=== PATIENT | female | born 1970 | race Caucasian/White ===

== ENCOUNTER 2021-10-15 10:16 | Outpatient (REF) | payer OTHER, SELFPAY ==
[2021-10-15 13:36] LABS: Hematocrit 43.1 % (37.0-47.0); Hemoglobin 14.6 g/dl (12.0-16.0); Mean Corpuscular HGB Conc 33.9 g/dl (31.0-35.0); Mean Corpuscular Hemoglobin 31.8 pg (27.0-33.0); Mean Corpuscular Volume 93.9 fL (80.0-98.0); Mean Platelet Volume 10.2 fL (9.4-12.3); Platelet Count 222 X10*3/uL (160-400); Red Blood Count 4.59 X10*6/uL (4.20-5.50); Red Cell Distribution Width 12.6 % (11.0-16.0); White Blood Count 6.5 X10*3/uL (4.8-10.8)
[2021-10-15 13:41] LABS: Alanine Aminotransferase 17 U/L (0-31); Alkaline Phosphatase 69 U/L (39-117); Anion Gap 13 (12-20); Aspartate Amino Transferase 17 U/L (5-31); Bilirubin Total 0.2 mg/dL (0.0-1.0); Blood Urea Nitrogen 13 mg/dL (9-16); Calcium 9.2 mg/dL (8.4-10.2); Carbon Dioxide 30 mmol/L (22-29); Chloride 101 mmol/L (96-108); Cholesterol 218 mg/dL; Estimated Glomerular Filt Rate > 60; Glucose Fasting 104 mg/dL (60-99); HDL Cholesterol 57 mg/dL; LDL Cholesterol Calculated 137 mg/dl; Potassium 4.9 mmol/L (3.3-5.1); Sodium 139 mmol/L (135-145); Total Protein 7.1 g/dL (6.5-8.0); Triglycerides 121 mg/dL
[2021-10-15 14:02] LABS: TSH reflex Free T4 1.48 uIU/mL (0.32-4.0)
== END 2021-10-15 10:17 | disposition home or self-care (01) ==
LOC: HO.WFDLDS 10:16
PROVIDERS: Visit Provider Hospitalist
DX: Z00.00 Encounter for general adult medical examination without abnormal findings (principal)
CPT/HCPCS: 36415; 80053; 80061; 84443; 85027

== ENCOUNTER 2022-06-26 10:24 | Outpatient (REF) | payer OTHER, SELFPAY ==
[2022-06-26 13:55] LABS: MANUAL DIFF FLAG NO
[2022-06-26 14:16] LABS: Basophils Percent Auto 0.5 % (0-2); Eosinophils Absolute Auto 0.2 X10*3/uL (0.0-0.4); Hematocrit 42.1 % (37.0-47.0); Imm Gran Abs Auto 0.02 X10*3/uL (0.00-0.03); Imm Gran Pct Auto 0.3 % (0.0-0.4); Lymphocytes Absolute Auto 2.4 X10*3/uL (1.2-4.9); Lymphocytes Percent Auto 33.4 % (20-40); Mean Corpuscular HGB Conc 33.3 g/dl (31.0-35.0); Mean Corpuscular Hemoglobin 31.3 pg (27.0-33.0); Mean Corpuscular Volume 94.2 fL (80.0-98.0); Mean Platelet Volume 9.9 fL (9.4-12.3); Monocytes Absolute Auto 0.7 X10*3/uL (0.1-1.2); Monocytes Percent Auto 9.5 % (2-11); Neutrophils Absolute Auto 3.9 x10*3/uL (2.0-8.3); Neutrophils Percent Auto 53.3 % (45-73); Platelet Count 229 X10*3/uL (160-400); Red Blood Count 4.47 X10*6/uL (4.20-5.50); White Blood Count 7.3 X10*3/uL (4.8-10.8)
== END 2022-06-26 10:25 | disposition home or self-care (01) ==
LOC: HO.WFDLDS 10:24
PROVIDERS: Visit Provider Hospitalist
DX: R59.1 Generalized enlarged lymph nodes (principal)
CPT/HCPCS: 36415; 85025

== ENCOUNTER 2022-08-07 09:19 | Day surgery (SDC) | payer OTHER, SELFPAY ==
--- NOTE | 2022-08-06 12:06 | HO.ANESPROP2 ---
Documented by User: Lety Recinos NP 08/06/22 12:07 HPI - Anesthesia Eval Consult details Narrative: 51yo F for Colonoscopy [facility] Active Problems Active Problems: All Active Problems (Updated 08/06/22 @ 08:43 by Renetta Sneed RN) Normal physical exam (Acute) Ready to quit smoking (Acute) Lymphadenopathy of head and neck (Acute) Abnormal finding on urinalysis (Acute) Past Medical History Medical History (Updated 08/06/22 @ 08:43 by Renetta Sneed RN) No pertinent past medical history Surgical History Surgical History (Updated 08/06/22 @ 08:47 by Renetta Sneed RN) Surgical history unknown Social History Social History Housing: Apartment Patient Tobacco Use Status: Current everyday Tobacco user Tobacco use type: Cigarette Cigarettes Per Day: 5 e-Cigarette/Vaping Use: Never Used Second Hand Smoke Exposure: No Use of substances other than those prescribed or required for medical reasons: No Are you DNR?: No Advance Directives: No Advance Directives Information Provided: Yes service: No Current occupational status: employed 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 Current occupational exposures/hazards: No Cognitive needs: No Hearing needs: No Vision needs: No Meds Allergies Allergy/AdvReac Type Severity Reaction Status Date / Time No Known Allergies Allergy Verified 06/23/22 13:44 Exam Exam Date and Time: August 06, 2022 1206 Pertinent Lab Results Pertinent Lab Results: Laboratory Tests 06/26/22 10:30 WBC 7.3 Hgb 14.0 Hct 42.1 Plt Count 229 Assessment and Plan Assessment Anesthesia Assessment: Chart Reviewed Documented by User: Hang Ta MD 08/07/22 10:58 [facility] Past Medical History Medical History (Updated 08/06/22 @ 08:43 by Renetta Sneed RN) No pertinent past medical history Family History Family history of problems with anesthesia: No Surgical History Surgical History (Updated 08/06/22 @ 08:47 by Renetta Sneed RN) Surgical history unknown History of Problems with Anesthesia: No Social History Social History Housing: Apartment Patient Tobacco Use Status: Current everyday Tobacco user Tobacco use type: Cigarette Cigarettes Per Day: 5 e-Cigarette/Vaping Use: Never Used Second Hand Smoke Exposure: No Use of substances other than those prescribed or required for medical reasons: No Are you DNR?: No Advance Directives: No Advance Directives Information Provided: Yes service: No Current occupational status: employed 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 Current occupational exposures/hazards: No Cognitive needs: No Hearing needs: No Vision needs: No Meds Allergies Allergy/AdvReac Type Severity Reaction Status Date / Time No Known Allergies Allergy Verified 06/23/22 13:44 Exam Airway Mallampati Class: II TM Dist: >3cm Neck ROM: Full Heart: ok Lungs: ok Assessment and Plan Assessment Anesthesia Assessment: Anesthesia Plan Discussed Final Anesthetic Review Family History of Problems with Anesthesia: No History of Problems with Anesthesia: No NPO: Yes ASA Class: I Final Preanesthetic Review: No Changes in Pt Med Stat, Meds/Allgs Chart Reviewed, Consent Obtained/Reviewed and Anes Risks/Benef Reviewed Patient Risk: Low Procedure Risk: Low Anesthetic Plan Anesthetic Plan: MAC: and Agree w/ Assess. and Plan Disposition: Standard PACU
[2022-08-07 09:43] VITALS: BP 144/79; PULSE 56; RESP 18; TEMP 36.8; O2SAT 99; BMI 28.0
[2022-08-07 09:49] LABS: UPreg QC Valid YES; Urine Pregnancy NEGATIVE (NEGATIVE)
[2022-08-07] MEDS: Lactated Ringers 1,000 ML 100 ML IVCONT (10:02)
--- NOTE | 2022-08-07 10:38 | MHC.SHP ---
Pre-Procedural Eval Section A Date of Service: 08/07/22 Section B Chief Complaint: Encounter for screening for malignant neoplasm Relevant Family History (Specify if Yes): No Relevant Social History: Tobacco Use Present Medications: see Short Stay Collaborative assessment Medical History: No relevant PMH History of Previous Operations: Relevant previous surgery/procedure and date(s) (wisdom teeth ) Allergies: Allergies Allergy/AdvReac Type Severity Reaction Status Date / Time No Known Allergies Allergy Verified 06/23/22 13:44 Review of Systems Sugical H&P ROS: Negative: Constitution, Cardiovascular, Respiratory, Neurological, Psychiatric, Hem-Onc, Allergic/Immunologic, Gastrointestinal, Genitourinary, Musculoskeletal, Integumentary, Endocrine and Eyes/Ears/Nose/Throat Exam Surgical H&P Exam: Normal: HEENT, Normal: Heart, Normal: Lungs, Normal: Extremities, Normal: Abdomen, Normal: Skin and Normal: Neurological Plan Diagnosis/Plan: Unchanged I have reviewed the history and physical and performed a pertinent physical examination on my patient. No changes have occurred unless specified. Time Spent With Patient Time: Total time managing care of this patient today ____ minutes.
--- NOTE | 2022-08-07 10:39 | W.PM.OPN ---
Operative Note Operative Note Date of Service: 08/07/22 Narrative: Operative Information Procedure Description: Colonoscopy Indication: screening Anesthesia: MAC COLONOSCOPY Instrument: Olympus variable stiffness pediatric scope 190L Colonoscopy Monitoring: Vital signs and clinical assessment, continuous EKG monitoring, Pulse oximetry, Carbon Dioxide monitoring and blood pressure monitoring were done throughout the procedure. Colon withdrawal time was 12 minutes. Procedure: The patient was placed in the left lateral decubitis position and pre-procedure medications were administered. After a digital rectal examination of the ano-rectum, the video colonoscope was inserted into the rectum and advanced through the colon to the cecum/TI. The colonoscope was slowly withdrawn in a retrograde panoramic fashion and the colon mucosa was carefully examined including a retroflexed view of the rectum. Findings and interventions are described below. Procedure Difficulty: easy Findings: Terminal Ileum-normal Cecum:normal right sided retroflexion-nml Ascending Colon: normal Transverse Colon -normal Descending Colon:normal Sigmoid Colon: 4-5 mm sessile polyp removed with cold forceps, 8-10 mm sessile polyp removed with cold snare, mild diverticulosis noted Rectum: Retroflexion with small internal hemorrhoids, grade I Anorectum - normal Colon preparation: Steptoe Bowel Preparation Scale Right colon; 2 Transverse colon: 3 Left colon; 3 (0 = Unprepared colon segment with mucosa not seen due to solid stool that cannot be cleared. 1 = Portion of mucosa of the colon segment seen, but other areas of the colon segment not well seen due to staining, residual stool and/or opaque liquid. 2 = Minor amount of residual staining, small fragments of stool and/or opaque liquid, but mucosa of colon segment seen well. 3 = Entire mucosa of colon segment seen well with no residual staining, small fragments of stool or opaque liquid) Impression and Post Procedure Diagnosis: polyps internal hemorrhoids diverticular disease Plan: High fiber diet leaflet Avoid straining at stool, epsom salts and sitz bath, anusol supps or cream Repeat Colonoscopy in 5-7 years if adenomatous polyps, 10 yr if hyperplastic or earlier if clinically indicated Above findings were reviewed with the patient and relevant handouts were provided if indicated.
[2022-08-07 11:18] VITALS: BP 114/64; PULSE 71; RESP 16; TEMP 36.7; O2SAT 98
[2022-08-07 11:33] VITALS: BP 128/84; PULSE 60; RESP 18; TEMP 36.7; O2SAT 99
== END 2022-08-07 12:00 | disposition home or self-care (01) ==
PROVIDERS: Nurse Practitioner; PCP Hospitalist; Visit Provider Internal Medicine Gastroenterology
PROC: 0DJD8ZZ Inspection of Lower Intestinal Tract, Via Natural or Artificial Opening Endoscopic (ICD-10-PCS; CPT 45378; principal; 2022-08-07 10:50)
DX: Z12.11 Encounter for screening for malignant neoplasm of colon (principal); K63.5 Polyp of colon; K57.30 Diverticulosis of large intestine without perforation or abscess without bleeding; K64.0 First degree hemorrhoids; F17.210 Nicotine dependence, cigarettes, uncomplicated
CPT/HCPCS: 45385; 45380; 81025; 88305

== ENCOUNTER 2022-11-25 09:39 | Outpatient (AMB) | payer OTHER, SELFPAY ==
[2022-11-25 09:43] VITALS: BP 126/72; PULSE 78; RESP 15; O2SAT 98; BMI 29.1
--- NOTE | 2022-11-25 09:43 | MHC.PC.OV ---
Vital Signs 11/25/22 09:43 Height 5 ft 3 in Weight 164 lb 2 oz BMI 29.1 BP 126/72 Blood Pressure Location Lt brachial Position Sitting Respiration 15 Pulse 78 Pulse Source Pulse Oximeter Pulse Oximetry (%) 98 Oxygen Delivery Method Room Air Intake Visit Reasons: ? shingles rash, hand pain Intake Note: Patient reports she has an itching rash on right shoulder and under left breast. Patient reports having a history of shingles and reports this may be a flare up. Patient also reports she tripped and fell September 29, 2023 and injured her left middle finger and it hasn't quite healed yet. Orthopedic Brace Maker Required: No Accompanied by: Self / Same As Patient Allergies No Known Allergies Allergy (Verified 11/25/22 09:49) Tobacco use date assessed: 06/04/22 Dental Screening Dental Screen Date: 11/25/22 Did you have a dental visit in the last 12 months?: Yes Did you have a dental problem in the last 6 months where you did not have access to dental care?: No Was dental information given to patient?: Patient has dentist HPI ? shingles rash, hand pain HPI Details 52 y/o female presents with complaints of a rash. She also reports hand pain. Patient reports she has an itching rash on right shoulder and under left breast. Patient reports having a history of shingles and reports this may be a flare up. Patient also reports she tripped and fell September 29, 2023 and injured her left middle finger and it hasn't quite healed yet. 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 Tanvir Brian, Kaila Mukherjee, Olegario Palmer and colleagues, with an educational chato from [employer]. Review of Systems Const Denies chills, Denies fatigue, Denies fever(s), Denies headache(s) and Denies weakness ENT Denies dizziness and Denies headache(s) Card Denies dyspnea Resp Denies cough, Denies dyspnea, Denies wheezing and Denies other (shortness of breath) Musc Details: L hand pain Denies numbness and Denies tingling Skin/Breast Reports rash Neuro Denies dizziness, Denies headache(s), Denies numbness, Denies tingling and Denies weakness Psych Denies anxiety and Denies depression Endo Denies fatigue Aller/Immun Denies wheezing Physical exam (Primary Care) Vital Signs: Last Vital Signs Pulse 78 11/25/22 09:43 Resp 15 11/25/22 09:43 BP 126/72 11/25/22 09:43 Pulse Ox 98 11/25/22 09:43 Oxygen Delivery Method Room Air 11/25/22 09:43 BMI result Body Mass Index 29.1 Tobacco/Smoking Status: Tobacco use Status Tobacco use date assessed 06/04/22 11/25/22 09:50 Patient Tobacco Use Status Current everyday Tobacco 11/25/22 09:50 Tobacco use type Cigarette 11/25/22 09:50 e-Cigarette/Vaping Use Never Used 11/25/22 09:50 Thrive Assessment: Date of Thrive Assessment Date Thrive assessed 06/04/22 11/25/22 09:50 Const General: well developed; No acute distress Nutritional Appearance: well nourished Orientation/consciousness: patient oriented x3 HENMT Head: Yes normocephalic and Yes atraumatic Eyes General: appearance normal, both eyes and all related structures Pupils: Equal, round and reactive pupils present EOM: EOMs intact bilaterally Resp Effort & Inspection: normal respiratory effort Skin Other: Rash at posterior shoulder/ribs and also sternum under medial L breast Neuro General: patient oriented x3 and gait normal Cranial nerves: Yes Equal, round and reactive pupils present Psych Affect: normal affect Assessment and Plan Assessment & Plan (1) Rash: Code(s): R21 - Rash and other nonspecific skin eruption Plan: Itchy rash at right posterior shoulder/ribs and also sternum under medial left breast. Patient feels convinced this is shingles and could possibly be so as the nerves of the rib due ever so slightly cross the midline. She has had shingles before and says this feels similar. Will give her a script for valacyclovir and gabapentin Can also be a folliculitis given the locations and appearance. She will use Hibiclens as well. She can call or return to office if not improving (2) Left hand pain: Code(s): M79.642 - Pain in left hand Plan: Pain at proximal middle finger after fall and hyper extension. 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 Referred to hand surgeon Orders: Orders XR hand LT min 3V Today M79.642 - Pain in left hand Referrals Hand Surgery Referral M79.642 - Pain in left hand Medications: New valacyclovir 500 mg PO Q12H 20 tabs 0RF 10 days gabapentin 300 mg PO BID PRN 20 caps 0RF pain 10 days Coding Level of Care Code Est Pt Level 3 (42839) Diagnoses Rash R21 Left hand pain M79.642
== END 2022-11-25 10:12 | disposition home or self-care (01) ==
PROVIDERS: PCP Hospitalist; Visit Provider Family Medicine
DX: R21 Rash and other nonspecific skin eruption (principal); M79.642 Pain in left hand
CPT/HCPCS: 99213

== ENCOUNTER 2022-11-25 10:40 | Outpatient (REF) | payer OTHER, SELFPAY ==
--- NOTE | ~2022-11-25 | XR_ITS ---
EXAMINATION: XR HAND, LEFT CLINICAL INFORMATION: Patient states bump between second and third MCP left hand COMPARISON: None available. TECHNIQUE: PA, lateral, and oblique views of the left hand. FINDINGS: The bones are intact. No fracture. Alignment is anatomic. Joint spaces are maintained. No erosions or soft tissue calcifications. No soft tissue calcifications. Question of ventral soft tissue bulge at the level of the proximal phalanges of the fingers on the lateral view. XR/XR hand LT min 3V IMPRESSION: 1. No bony abnormality. 2. Question of ventral soft tissue bulge at the level of the proximal phalanges of the fingers on the lateral view.
== END 2022-11-25 10:41 | disposition home or self-care (01) ==
LOC: HO.XRAY 10:40
PROVIDERS: PCP Family Medicine; Visit Provider Family Medicine
DX: M79.642 Pain in left hand (principal)
CPT/HCPCS: 73130

== ENCOUNTER 2023-11-23 10:11 | Outpatient (AMB) | payer OTHER, SELFPAY ==
--- NOTE | 2023-11-23 10:19 | MHC.PC.OV ---
Vital Signs 11/23/23 10:23 Height 5 ft 3.5 in Weight 166 lb BMI 28.9 BP 157/83 H Blood Pressure Location Rt brachial Position Sitting Respiration 12 Pulse 60 Pulse Oximetry (%) 98 Oxygen Delivery Method Room Air Intake Visit Reasons: mel[facility] from [facility] to [facility] Intake Note: Patient is here for a transfer of care from [facility] to [facility]. Patient reports numbness that radiates from left shoulder. Patient reports, menopause is killing me. Fittings Tightener Required: No Accompanied by: Self / Same As Patient Allergies No Known Allergies Allergy (Verified 11/23/23 10:29) Tobacco use date assessed: 11/23/23 Dental Screening Dental Screen Date: 11/23/23 HPI HPI Comments History of Present Illness Details The patient is a 53 year old female with a past medical history of elevated glucose, joint pain presenting to establish care Very frustrated by weight gain, post menopausal symptoms. Has low energy. Eats very little but still does not lose weight. Interested in new perimenopausal medication but worried about potential liver ramificatnions. has had multiple joint pain. Neck pain, spasm. Colonoscopy is up to date-07/2022, there was a hyperplastic polyp ROS CONSTITUTIONAL: Denies weight loss, fever and chills. HEENT: Denies changes in vision and hearing. RESPIRATORY: Denies SOB and cough. CV: Denies palpitations and CP GI: Denies abdominal pain, nausea, vomiting and diarrhea. : Denies dysuria and urinary frequency. MSK: Denies new myalgia and joint pain. SKIN: Denies rash and pruritus. NEUROLOGICAL: Denies headache PSYCHIATRIC: Denies recent changes in mood. PHYSICAL EXAM: GENERAL: Alert and oriented x 3. NAD EYES: EOMI. Anicteric. HENT: Moist mucous membranes. No scleral icterus. No cervical lymphadenopathy. LUNGS: Clear to auscultation bilaterally. CARDIOVASCULAR: Regular rate and rhythm. No murmur. No JVD. ABDOMEN: Soft, non-tender +bs EXTREMITIES: No edema. Non-tender. SKIN: No rashes or lesions. Warm. NEUROLOGIC: No focal neurological deficits. CN II-XII grossly intact PSYCHIATRIC: Cooperative. 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 1. Little interest or pleasure in doing things: not at all 2. Feeling down, depressed, or hopeless: not at all 3. Trouble falling or staying asleep, or sleeping too much: not at all 4. Feeling tired or having little energy: not at all 5. Poor appetite or overeating: not at all 6. Feeling bad about yourself - or that you are a failure or have let yourself or your family down: not at all 7. Trouble concentrating on things, such as reading the newspaper or watching television: not at all 8. Moving or speaking so slowly that other people could have noticed. Or the opposite - being so fidgety or restless that you have been moving around a lot more than usual: not at all 9. Thoughts that you would be better off or of hurting yourself in some way: not at all Total score: 0 Depression Screening Interpretation: Negative Depression Screening Done: Yes 93240 - PHQ-9 Billing: Yes Source: Developed by Drs. Tanvir Brian, Kaila Mukherjee, Olegario Palmer and colleagues, with an educational chato from [employer]. Thrive Questionnaire Date Thrive assessed: 11/23/23 I am a: Patient What is your living situation today?: I have a steady place to live Within the past 12 months, did the food you bought not last and you didn't have the money to get more?: Never true Within the past 12 months, did you worry whether your food would run out before you got money to buy more?: Never true Do you have trouble paying for medicines?: No Do you have trouble getting transportation to medical appointments?: No Do you have trouble paying your heating and electricity bill?: No Do you have trouble taking care of your child, family member or friend?: No Do you have trouble with day-to-day activities such as bathing, preparing meals, shopping, managing finances, etc.?: No Are you currently unemployed and looking for a job?: No Are you interested in more education?: No Please select the resources that you would like help with: None Currently or been in a relationship where the following occur: No concerns reported THRIVE Score: 0 AUDIT C Alcohol Use Questionnaire (AUDIT-C) 1. How often do you have a drink containing alcohol?: 4 or more times a week 2. How many drinks containing alcohol do you have on a typical day when you are drinking?: 1 or 2 3. How often do you have six or more drinks on one occasion?: Monthly Total Score: 6 ERICK-7 AMB Questionnaire ERICK-7 Date ERICK - 7 assessed: 11/23/23 Feeling nervous, anxious, or on edge: 1 = Several days Not being able to stop or control worryin = Not at all Worrying too much about different things: 0 = Not at all Trouble relaxin = Not at all Being so restless that it is hard to sit still: 0 = Not at all Becoming easily annoyed or irritable: 1 = Several days Feeling afraid as if something awful might happen: 0 = Not at all Total ERICK-7 score (0-4 normal; 5-9 mild; 10-14 moderate; 15-21 severe): 2 Source: Developed by Drs. Tanvir Brian, Kaila Mukherjee, Olegario Palmer and colleagues, with an educational chato from [employer]. Physical exam (Primary Care) Vital Signs: Last Vital Signs Pulse 60 11/23/23 10:23 Resp 12 11/23/23 10:23 BP 157/83 H 11/23/23 10:23 Pulse Ox 98 11/23/23 10:23 Oxygen Delivery Method Room Air 11/23/23 10:23 BMI result Body Mass Index 28.9 Tobacco/Smoking Status: Tobacco use Status Tobacco use date assessed 11/23/23 11/23/23 10:34 Patient Tobacco Use Status Current everyday Tobacco 11/23/23 10:34 Tobacco use type Cigarette 11/23/23 10:21 e-Cigarette/Vaping Use Never Used 11/23/23 10:21 PHQ-9: PHQ-9 Score PHQ-9: Total score 0 11/23/23 11:08 Depression Screening Interpretation: Negative Thrive Assessment: Date of Thrive Assessment Date Thrive assessed 11/23/23 11/23/23 10:21 Currently or been in a relationship where the following occur: No concerns reported Assessment and Plan Assessment & Plan (1) Polyarthralgia: Code(s): M25.50 - Pain in unspecified joint Plan: Referral to PSS xray ordered. refer PT (2) Night sweats: Code(s): R61 - Generalized hyperhidrosis Plan: consider perimenopausal therapy. Has baseline LFTs. RUQ u/s ordered Orders: Orders Comprehensive Met. Panel 11/23/23 M25.50 - Pain in unspecified joint, R73.09 - Other abnormal glucose, Z13.0 - Encounter for screening for diseases of the blood and blood-forming organs and certain disorders involving the immune mechanism, Z13.220 - Encounter for screening for lipoid disorders, Z13.228 - Encounter for screening for other metabolic disorders Lipid Panel 11/23/23 M25.50 - Pain in unspecified joint, R73.09 - Other abnormal glucose, Z13.0 - Encounter for screening for diseases of the blood and blood-forming organs and certain disorders involving the immune mechanism, Z13.220 - Encounter for screening for lipoid disorders, Z13.228 - Encounter for screening for other metabolic disorders XR cervical spine 3V 11/27/23 M25.50 - Pain in unspecified joint, R73.09 - Other abnormal glucose, Z13.0 - Encounter for screening for diseases of the blood and blood-forming organs and certain disorders involving the immune mechanism, Z13.220 - Encounter for screening for lipoid disorders, Z13.228 - Encounter for screening for other metabolic disorders Lyme IgG/IgM w/reflex to WB 11/23/23 M25.50 - Pain in unspecified joint, R73.09 - Other abnormal glucose, Z13.0 - Encounter for screening for diseases of the blood and blood-forming organs and certain disorders involving the immune mechanism, Z13.220 - Encounter for screening for lipoid disorders, Z13.228 - Encounter for screening for other metabolic disorders Complete Blood Count Auto Diff 11/23/23 M25.50 - Pain in unspecified joint, R73.09 - Other abnormal glucose, Z13.0 - Encounter for screening for diseases of the blood and blood-forming organs and certain disorders involving the immune mechanism, Z13.220 - Encounter for screening for lipoid disorders, Z13.228 - Encounter for screening for other metabolic disorders Vitamin B12 and Folate 11/23/23 M25.50 - Pain in unspecified joint, R73.09 - Other abnormal glucose, Z13.0 - Encounter for screening for diseases of the blood and blood-forming organs and certain disorders involving the immune mechanism, Z13.220 - Encounter for screening for lipoid disorders, Z13.228 - Encounter for screening for other metabolic disorders Hemoglobin A1c 11/23/23 M25.50 - Pain in unspecified joint, R73.09 - Other abnormal glucose, Z13.0 - Encounter for screening for diseases of the blood and blood-forming organs and certain disorders involving the immune mechanism, Z13.220 - Encounter for screening for lipoid disorders, Z13.228 - Encounter for screening for other metabolic disorders US abdomen limited 11/27/23 R10.11 - Right upper quadrant pain TSH reflex Free T4 11/23/23 R61 - Generalized hyperhidrosis Referrals Orthopedics Referral M54.2 - Cervicalgia Medications: New Weg[place]uricioy (semaglutide (weight loss)) administer weeks 1 through 4 of therapy 0.25 mg (0.5 mL) subcut QWEEK 2 mL 0RF NS E66.9 - Obesity, unspecified bupropion HCl XL 150 mg PO DAILY 90 tabs 3RF Discontinued nicotine (polacrilex) partial fill on request Discontinued Reason: Patient no longer taking 2 mg buccal Q2H 100 ea 2RF F17.200 - Nicotine dependence, unspecified, uncomplicated valacyclovir Discontinued Reason: Patient no longer taking 500 mg PO Q12H 10 days 20 tabs 0RF gabapentin Discontinued Reason: Patient no longer taking 300 mg PO BID 10 days PRN 20 caps 0RF pain polyethylene glycol 3350 take orally as directed prior to colonoscopy Discontinued Reason: Patient no longer taking 238 grams PO ONCE 1 day 238 grams 0RF bisacodyl take orally as directed prior to colonoscopy Discontinued Reason: Patient no longer taking 10 mg (2 x 5 mg) PO ONCE 1 day 2 tabs 0RF Coding Level of Care Code Est Pt Level 4 (91281) Complex EM visit Add On G2211 Diagnoses Polyarthralgia M25.50 Night sweats R61
[2023-11-23 10:23] VITALS: BP 157/83; PULSE 60; RESP 12; O2SAT 98; BMI 28.9
== END 2023-11-23 11:22 | disposition home or self-care (01) ==
PROVIDERS: PCP Family Medicine; Visit Provider Internal Medicine
DX: M25.50 Pain in unspecified joint (principal); R61 Generalized hyperhidrosis

== ENCOUNTER → 2023-11-23 10:11 | Outpatient (BNVA) | payer OTHER, SELFPAY | PROVIDERS: PCP Family Medicine; Visit Provider Internal Medicine | DX: M25.50 Pain in unspecified joint (principal); R61 Generalized hyperhidrosis | CPT/HCPCS: 99212 ==

== ENCOUNTER 2023-11-23 11:26 | Outpatient (REF) | payer OTHER, SELFPAY ==
[2023-11-23 15:16] LABS: MANUAL DIFF FLAG NO
[2023-11-23 15:25] LABS: Basophils Absolute Auto 0.1 X10*3/uL (0.0-0.2); Eosinophils Absolute Auto 0.1 X10*3/uL (0.0-0.4); Eosinophils Percent Auto 1.5 % (0-4); Hematocrit 40.3 % (37.0-47.0); Hemoglobin 14.1 g/dl (12.0-16.0); Imm Gran Abs Auto 0.02 X10*3/uL (0.00-0.03); Imm Gran Pct Auto 0.3 % (0.0-0.4); Lymphocytes Absolute Auto 2.1 X10*3/uL (1.2-4.9); Lymphocytes Percent Auto 36.1 % (20-40); Mean Corpuscular Hemoglobin 32.3 pg (27.0-33.0); Mean Corpuscular Volume 92.2 fL (80.0-98.0); Mean Platelet Volume 9.8 fL (9.4-12.3); Monocytes Absolute Auto 0.5 X10*3/uL (0.1-1.2); Monocytes Percent Auto 7.9 % (2-11); Neutrophils Absolute Auto 3.1 x10*3/uL (2.0-8.3); Neutrophils Percent Auto 53.2 % (45-73); Platelet Count 239 X10*3/uL (160-400); Red Blood Count 4.37 X10*6/uL (4.20-5.50); Red Cell Distribution Width 12.5 % (11.0-16.0); White Blood Count 5.8 X10*3/uL (4.8-10.8)
[2023-11-23 16:18] LABS: Alanine Aminotransferase 21 U/L (0-31); Albumin Level 4.4 g/dL (3.5-5.0); Alkaline Phosphatase 84 U/L (39-117); Anion Gap 13 (12-20); Aspartate Amino Transferase 18 U/L (5-31); Bilirubin Total 0.4 mg/dL (0.0-1.0); Blood Urea Nitrogen 8 mg/dL (9-16); Calcium 9.9 mg/dL (8.4-10.2); Carbon Dioxide 28 mmol/L (22-29); Chloride 104 mmol/L (96-108); Cholesterol 240 mg/dL (<200); Estimated Glomerular Filt Rate > 60; Glucose Random 108 mg/dL (60-115); HDL Cholesterol 66 mg/dL (>40); LDL Cholesterol Calculated 153 mg/dL (<100); Potassium 4.4 mmol/L (3.3-5.1); Sodium 141 mmol/L (135-145); TSH reflex Free T4 1.54 uIU/mL (0.32-4.0); Total Protein 7.9 g/dL (6.5-8.0); Triglycerides 108 mg/dL (<150)
[2023-11-23 16:19] LABS: Estimated Average Glucose 111 mg/dL; Hemoglobin A1c % 5.5 % (<6.0)
[2023-11-23 16:23] LABS: Folate 9.9 ng/mL (> or = 4.0); Vitamin B12 444 pg/mL (200-900)
[2023-11-24 17:39] LABS: Lyme Abs Screen <0.90 index
== END 2023-11-23 11:27 | disposition home or self-care (01) ==
LOC: HO.WFDLDS 11:26
PROVIDERS: Visit Provider Internal Medicine
DX: M25.50 Pain in unspecified joint (principal); R61 Generalized hyperhidrosis; Z13.228 Encounter for screening for other metabolic disorders; R73.09 Other abnormal glucose; Z13.0 Encounter for screening for diseases of the blood and blood-forming organs and certain disorders involving the immune mechanism; Z13.220 Encounter for screening for lipoid disorders
CPT/HCPCS: 36415; 80053; 80061; 82607; 82746; 83036; 84443; 85025; 86617; 86618

== ENCOUNTER 2023-11-27 09:01 | Outpatient (REF) | payer OTHER, SELFPAY ==
--- NOTE | ~2023-11-27 | XR_ITS ---
EXAMINATION: XR CERVICAL SPINE CLINICAL INFORMATION: Z13.220 - Encounter for screening for lipoid disorders COMPARISON: None available. TECHNIQUE: 4 views of the cervical spine were obtained. FINDINGS: Normal bone mineralization. No fracture, compression deformity, or suspicious bone lesion. There is no scoliosis. There is a mild reversal of the normal lordosis centered at C5. Trace degenerative retrolisthesis C5 on C6. Alignment is otherwise normal without subluxation. Moderate disc space narrowing noted C3-4, C4-5, with moderate to severe disc degeneration present at C5-6 and C6-7. C2-3 and C7-T1 disc spaces appear normal. Atlantoaxial joint is normal. Craniocervical junction is intact. There are hypertrophic facet changes most prominent oriented to the left at C2-3 and C3-4. There is no prevertebral or paravertebral soft tissue abnormality. The lung apices are clear. XR/XR cervical spine 3V IMPRESSION: 1. No acute findings of the cervical spine. 2. Mild reversal of the normal lordosis centered at C5, nonspecific. 3. Moderate degenerative disc disease most significant C5-6 and C6-7. Degenerative facet disease on the left at C3-4 and C4-5. Electronically signed by: Valdemar Fuentes MD 02/05/2024 02:09 PM ARLET
--- NOTE | ~2023-11-27 | US_ITS ---
EXAMINATION: US ABDOMEN LIMITED CLINICAL INFORMATION: Right upper quadrant pain. History of elevated LFTs. COMPARISON: None available. TECHNIQUE: Real-time imaging of the right upper quadrant abdominal viscera. FINDINGS: PANCREAS: Normal. LIVER: The liver is normal in size. The liver contour is normal. There is diffuse increased liver parenchymal echogenicity, consistent with hepatic steatosis. No focal hepatic lesion. There is no intrahepatic biliary duct dilatation seen. GALLBLADDER: Two gallbladder polyps are present measuring 4 and 5 mm in size. The gallbladder is otherwise unremarkable, without evidence of stones, sludge, wall thickening or pericholecystic fluid. COMMON BILE DUCT: Normal in caliber measuring 0.3 cm in diameter. RIGHT KIDNEY: No hydronephrosis or renal calculi. The kidney measures 10.0 cm in maximum dimension. A benign 1.2 cm septated benign Bosniak class II renal cyst is noted which requires no additional imaging or followup. No solid renal masses are seen. FREE FLUID: None. US/US abdomen limited IMPRESSION: 1. Hepatic steatosis. 2. Gallbladder polyps. Electronically signed by: Terrence Monzon MD 12/04/2023 11:21 AM EDT
== END 2023-11-27 09:02 | disposition home or self-care (01) ==
LOC: HO.US 09:01
PROVIDERS: PCP Family Medicine; Visit Provider Internal Medicine
DX: R10.11 Right upper quadrant pain (principal); M54.2 Cervicalgia
CPT/HCPCS: 72040; 76705

== ENCOUNTER → 2023-11-27 09:03 | Outpatient (BNV) | payer OTHER, SELFPAY | PROVIDERS: PCP Family Medicine; Visit Provider Radiology Diagnostic Radiology | DX: M50.322 Other cervical disc degeneration at C5-C6 level (principal) | CPT/HCPCS: 72050 ==

== ENCOUNTER 2024-05-31 09:28 | Outpatient (AMB) | payer OTHER, SELFPAY ==
--- NOTE | 2024-05-31 09:19 | MHC.PC.OV ---
Vital Signs 05/31/24 09:50 Height 5 ft 3 in Weight 181 lb 2 oz BMI 32.1 BP 153/86 H Blood Pressure Location Rt brachial Intake Visit Reasons: med inquiry-wegovy Intake Note: Discuss weight loss medication. Wegovy was denied. Wants alternative, did not like side effects with Wegovy. Going to chiropractor on Thursday for neck pain. Was only on Bupropion for 2 months and ran out of refills. 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 Has gained 15 pounds since last visit. Has tried gym 5x/week and limited calorie diet for the past 6 months and has gained not lost weight. Started in perimenopause. Increased joint pain. Her blood pressure today is elevated at home. Was elevated at last visit as well. Last lipids showed hyperlipidemia. has had multiple joint pain. Neck pain, spasm. Cervical DDD. Following with [facility]. recent MRI. Taking meloxicam. Trouble sleeping Colonoscopy is up to date-07/2022, there was a hyperplastic polyp ROS see HPI PHYSICAL EXAM: Telehealth [facility] Medical History Left hand pain Surgical History Surgical history unknown Family History Brother Substance use disorder Social History Housing: Apartment Alcohol intake: current Alcohol intake frequency: 0-2 drinks per day Patient Tobacco Use Status: Current everyday Tobacco user Tobacco use type: Cigarette Cigarettes Per Day: 3 e-Cigarette/Vaping Use: Never Used Second Hand Smoke Exposure: No Use of substances other than those prescribed or required for medical reasons: No service: No Current occupational status: employed 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 Current occupational exposures/hazards: No Cognitive needs: No Hearing needs: No Vision needs: No Questionnaire Thrive Questionnaire Date Thrive assessed: 11/23/23 I am a: Patient What is your living situation today?: I have a steady place to live Within the past 12 months, did the food you bought not last and you didn't have the money to get more?: Never true Within the past 12 months, did you worry whether your food would run out before you got money to buy more?: Never true Do you have trouble paying for medicines?: No Do you have trouble getting transportation to medical appointments?: No Do you have trouble paying your heating and electricity bill?: No Do you have trouble taking care of your child, family member or friend?: No Do you have trouble with day-to-day activities such as bathing, preparing meals, shopping, managing finances, etc.?: No Are you currently unemployed and looking for a job?: No Are you interested in more education?: No Please select the resources that you would like help with: None Currently or been in a relationship where the following occur: No concerns reported THRIVE Score: 0 AUDIT C Alcohol Use Questionnaire (AUDIT-C) 2. How many drinks containing alcohol do you have on a typical day when you are drinking?: 3 or 4 3. How often do you have six or more drinks on one occasion?: Monthly Total Score: 3 ERICK-7 AMB Questionnaire ERICK-7 Date ERICK - 7 assessed: 11/23/23 Source: Developed by Drs. Tanvir Brian, Kaila Mukherjee, Olegario Palmer and colleagues, with an educational chato from [employer]. Physical exam (Primary Care) Vital Signs: Last Vital Signs BP 153/86 H 05/31/24 09:50 BMI result Body Mass Index 32.1 Tobacco/Smoking Status: Tobacco use Status Tobacco use date assessed 11/23/23 05/31/24 09:24 Patient Tobacco Use Status Current everyday Tobacco 05/31/24 09:24 Tobacco use type Cigarette 05/31/24 09:24 e-Cigarette/Vaping Use Never Used 05/31/24 09:24 Thrive Assessment: Date of Thrive Assessment Date Thrive assessed 11/23/23 05/31/24 09:24 Currently or been in a relationship where the following occur: No concerns reported Telehealth Telehealth Telehealth Platform: Telephone Location of provider rendering services: practice address Location of patient: address on file Patient Identification confirmed using: Name, : Yes Telehealth method: voice only Patient verbally consented to treatment: Yes Patient verbally consented to billing insurance company: Yes Patient informed of any privacy concerns related to visit: Yes Minutes spent on Phone/Video with Pt.: 35 Coding Level of Care Code Tele Est Pt Level 4 (79697) Diagnoses Obesity (BMI 30.0-34.9) E66.811 Primary hypertension I10 Hypertension type: primary hypertension Hyperlipidemia, unspecified hyperlipidemia type E78.5 Hyperlipidemia type: unspecified Neck pain M54.2 Assessment & Plan Assessment & Plan (1) Obesity (BMI 30.0-34.9): Code(s): E66.811 - Obesity, class 1 Category: Medical (2) Hypertension: Code(s): I10 - Essential (primary) hypertension Category: Medical Qualifiers: Hypertension type: primary hypertension Qualified Code(s): I10 - Essential (primary) hypertension (3) Hyperlipidemia: Code(s): E78.5 - Hyperlipidemia, unspecified Category: Medical Qualifiers: Hyperlipidemia type: unspecified Qualified Code(s): E78.5 - Hyperlipidemia, unspecified (4) Neck pain: Code(s): M54.2 - Cervicalgia Category: Medical Plan obesity with htn, hld. weight gain despite diet and exercise. Zepbound sent. Todays weight and blood pressure entered Neck pain, shoulder pain. continue follow up with orthopedics. Can try gabapentin and flexeril Medications: New Zepbound (tirzepatide (weight loss)) for 4 weeks 2.5 mg (0.5 mL) subcut QWEEK 2 mL 0RF NS E66.811 - Obesity, class 1, E78.5 - Hyperlipidemia, unspecified, I10 - Essential (primary) hypertension gabapentin 300 mg PO TID 90 caps 1RF cyclobenzaprine 5 - 10 mg (1 - 2 x 5 mg) PO BEDTIME PRN 30 tabs 2RF muscle spasm
[2024-05-31 09:50] VITALS: BP 153/86; BMI 32.1
--- OUTSIDE RECORDS SUMMARY | 2024-05-31 10:41 | XMS_ITS ---
Author Organization [facility] Address [address] [address] Care Team Providers Care Sewer Inspector Name Role Phone RINA BLANCO MD Primary Care Provider Unavailab TYESHA Lopez Unavailable [phone] REASON FOR VISIT Annual TEAM COORDINATOR Physical Encounters Encounter Location Date Provider Diagnosis [facility] [address] [facility] [address] [place] [address] 11/24/2023 TYESHA WILLINGHAM Encounter for gynecological examination [...] Follow Up: 1 Year, Reason: Y early Electric Switch Tester Exam Provider Name:TYESHA Beckford, 01/31/2025 11:00:00 AM, [address], [address], [place], [address], Progress Notes * BESSIE LUZDOB:1970 (53 yo F)Acc No.[id number]:11/24/2023 PROGRESS NOTES Patient:?BESSIE LUZ Provider:?TYESHA WILLINGHAM MD :1970???Age:53 Y???Sex:Female D ate:11/24/2023 Address:[address] Pcp:RINA ZEPEDA MD Subjective: * Chief Complaints: * ???1. Annual TEAM COORDINATOR Physical. 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 ?She has been in state of good health since her last exam. She has the following concerns: ?She has not received the Covid-19 vaccine. ?Relationship status: *partnered for 4 years. They live together and she feels safe at home. She is sexually active. Sexual partner(s): male. She does not wish to have STI testing. ?Menses: *monthly, lasting 5-7 days, heavy for days 2-4, no changes. No intermenstrual bleeding. ?Contraception: fertility awareness method ?She does *not report vaginal dryness. She does* have hot flashes/night sweats - tolerating ok - uses Evening [place] oil with good effect. ?The patient has *not had an abnormal pap smear within the last 5 years. Her most recent pap smear was 12/13/2019 - NIL, neg HR HPV. Next due in 2024. ?She has not been diagnosed with breast cancer. She does *not have a family history of breast cancer. Her last mammogram was 11/09/23. . ?She does have a family history of colon cancer - not immediate, but she feels in her greater family, like her grandmother's siblings. She a has had a colonoscopy. The last colonoscopy was 08/07/22. Next due in 10 yrs. ?The patient does* exercise. She exercises x 2 days/week by riding and caring for horses. * ROS:?Annual Electric Switch Tester Exam ROS:?Bowel habit changes?denies.?Bladder symptoms?denies.?Vaginal discharge, unusual?denies.?Vaginal itch or odor?denies.?weight or appetite changes?denies.?Chest pains, SOB?denies.?depression?denies.?Breast:?Denies?Breast lump.?Denies?Nipple discharge.?Hematology:?Denies?Swollen glands.?Skin:?Patient denies?changing moles.?Psychiatric:?Denies?Anxiety.? * Medical History:? * Electric Switch Tester History:?/ Para?2/0.?Sexual activity?currently sexually active, with men.?Last Pap Smear:?12/13/2019 - NIL, neg HR HPV.?Mammogram:?06/26/22 < 50% density, 06/24/21 < 50% density, 2018.?Abnormal Pap Smear:?NO.?LMP and menses?08/06/22.? Control:?condoms.?Colonoscopy?08/07/22 WNL - f/u 10 yr.? * OB History:?Total pregnancies?2.?Total living children?0.?(s)?2, uncomplicated (she states she is Rh neg).? Objective: * Vitals:? 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 normal, good turgor, no rashes, no suspicious lesions.?BREASTS:? normal, no dimpling, no discharge, no drainage, no masses palpable bilaterally, nontender.?ABDOMEN:? soft, non-tender, non distended without masses or hepatosplenomegay.?RECTAL:? normal tone, no masses palpable.?BACK:? no costovertebral angle tenderness.?FEMALE GENITOURINARY:?Vulva without lesions or masses, vagina pink without abnormal discharge, lesions or masses, cervix appears normal and is not tender to palpation, uterus is normal size, mobile, nontender and anteverted, ovaries are not palpable.?NEUROLOGIC:? alert and oriented, gait normal.?PSYCH:? alert, oriented, cognitive function intact, cooperative with exam, good eye contact, mood/affect full range, speech clear.? Assessment: * Assessment: 1.?Encounter for gynecologic al examination (general) (routine) without abnormal findings - Z01.419 (Primary)???2.?Encounter for screening mammogram for malignant neoplasm of breast - Z12.31???3.?Encounter for screening for infections with a predominantly sexual mode of transmission - Z11.3??? Plan: * Treatment: 2.?Encounter for screening m ammogram for malignant neoplasm of breast?Imaging: MM Digital Screening Mammogram 3D * Follow Up:?1 Year (Reason: Y early Electric Switch Tester Exam) * Images: Billing Information: * Visit Code:? 92122 Preventive Care Est Pt. Age 40-64. * Procedure Codes:? 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 She has been in state of [...] sweats - tolerating ok - uses Evening [place] oil with good effect. 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
--- OUTSIDE RECORDS SUMMARY | 2024-05-31 10:41 | XMS_ITS ---
Author Organization [facility] Address [address] [facility] [address] [place] [address] Care Team Providers Care Occupational Therapy Asst Name Role Phone Beatriz ZEPEDA MD, RINA Primary Care Provider Unavailab TYESHA Lopez Unavailable [phone] REASON FOR VISIT PA for Veozah Encounters Encounter Location Date Provider Diagnosis [facility] [address] [facility] [address] [facility] [address] [place] [address] 02/10/2024 TYESHA WILLINGHAM Plan Of Treatment Next Appt Details Provider Name:TYESHA Beckford, 01/31/2025 11:00:00 AM, [address] [facility], [address], [place], [address], Progress Notes * BESSIE LUZDOB:1970 (53 yo F)Acc No.[id number]:02/10/2024 Patient:?SUKHMARITZAHA :1970???Age:53 Y???Sex:Female Address:[facility] [address] , [place], [address] * * Date:?
--- OUTSIDE RECORDS SUMMARY | 2024-05-31 10:41 | XMS_ITS | Patient Health Record ---
Author Organization [facility] Address [address] [facility] [place] [address] Care Team Providers Care Estimator Name Role Phone Beatriz ZEPEDA MD, RINA Primary Care Provider TYESHA Felder Unavailable [phone] Allergies No Known Allergies Reason For Referral No Information Medications Medication SIG (Take, Route, Frequency, Duration) Notes Start Date End Date Status Veozah 45 MG 1 tablet Orally Once a day for 90 days 01/25/2024 Active Wellbutrin Active Social History Tobacco Use: Social History Observation Description Date Details (start date - stop date) Current Smoker NA - NA Alcohol Screen (Audit-C) Question Answer Notes Did you have a drink contain ing alcohol in the past year? Yes How often did you have a dri nk containing alcohol in the past year? 4 or more times a week (4 points) How many drinks did you have on a typical day when you were drinking in the past year? 1 or 2 drinks (0 point) How often did you have 6 or more drinks on one occasion in the past year? Less than monthly (1 point) Points 5 Interpretation Positive Tobacco Control (Standard) Question Answer Notes Tobacco use: Current every day smoker Additional Findings: Tobacco user Light cigarett e smoker (1-9 cigs/day) Problems Problem Type SNOMED Code ICD Code Onset Dates Problem Status W/U Status Risk Notes Problem Tobacco user (333412956) Nicotine dependence, cigarettes, uncomplicated (F17.210) Active confirmed Problem Anxiety disorder (747193714) Anxiety disorder, unspecified (F41.9) Active confirmed Problem Menopause (407645865) Menopausal and female climacteric states (N95.1) Active confirmed Problem COVID-19 (666934808) COVID-19 (U07.1) Active confirmed Vital Signs Temperature 98.0 degrees Fahrenheit 01/25/2024 Blood pressure diastolic 74 mm Hg 01/25/2024 Height 64 in 01/25/2024 Blood pressure systolic 112 mm Hg 01/25/2024 Weight 168 lbs 01/25/2024 BMI 28.83 kg/m2 01/25/2024 Encounters Encounter Location Date Provider Diagnosis [facility] [address] [place] [address] 01/25/2024 TYESHA WILLINGHAM Encounter for gynecological examination (general) (routine) without abnormal findings Z01.419 ; Encounter for screening mammogram for malignant neoplasm of breast Z12.31 ; Menopausal and female climacteric states N95.1 and Other jail (current) drug therapy Z79.899 [facility] [address] [address] 02/10/2024 TYESHA WILLINGHAM Assessments Encounter Date Diagnosis (ICD Code) Assessment Notes Treatment Notes Treatment Clinical Notes Section Notes 01/25/2024 Encounter for gynecological examination (general) (routine) without abnormal findings (ICD-10 - Z01.419) During the visit, the following areas of concern were addressed: Discussed cervical cancer screening with either cytology alone every 3 years or high risk HPV co-testing every 5 years as per ASCCP guidelines. Advised continued annual pelvic exams. Patient encouraged to increase her level of exercise. SBE technique encouraged/taug ht. Patient reminded when annual mammogram is due. Patient encouraged to keep colon screening up to date. 01/25/2024 Encounter for screening mammogram for malignant neoplasm of breast (ICD-10 - Z12.31) 01/25/2024 Menopausal and female climacteric states (ICD-10 - N95.1) Will start Veozah. Needs blood work at 3, 6 and 9 months. If blood work is normal, then next 90 days of meds will be sent to pharmacy. 01/25/2024 Other predatory animal exterminator (current) drug therapy (ICD-10 - Z79.899) 01/25/2024 Other An additional 21 minutes were spent on the day of the visit reviewing and prepping the chart, obtaining the HPI, examining the patient, counseling the patient on the diagnosis, ordering/refill ing medications, ordering tests and procedures and documenting this encounter for the problem of menopausal symptoms. Plan Of Treatment Pending Test Test Name Order Date MM Digital Screening Mammogram 3D 2019 MM Digital Screening Mammogram 3D 2021 MM Digital Screening Mammogram 3D 2022 MM Digital Screening Mammogram 3D 2023 Future Test Test Name Order Date Bilirubin, Total-[id number] 04/26/2024 Alkaline Phosphatase-[id number] 04/26/2024 AST (SGOT)-[id number] 04/26/2024 Bilirubin, Direct-[id number] 04/26/2024 ALT (SGPT)-722373 04/26/2024 Next Appt Details Provider Name:TYESHA Beckford, 01/31/2025 11:00:00 AM, [address] [facility], [address], [place], [address], Insurance Providers Payer Name Payer Address Payer Phone Subscriber Number Group Number Insured Name Patient Relationship to Insured Coverage Start Date Coverage End Date [facility] [address] [address] [place] [address] [id number] BESSIE LUZ Self - patient is the insured Medical (General) History Medical History History ICD Code COVID-19 U07.1 Anxiety disorder, unspecified F41.9 Surgical History Surgery Date(Month/Year)
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
== END 2024-05-31 10:08 | disposition home or self-care (01) ==
LOC: HO.HMCFM 09:28
PROVIDERS: PCP Internal Medicine; Visit Provider Internal Medicine
DX: I10 Essential (primary) hypertension (principal); E66.811 Obesity, class 1; Z68.32 Body mass index [BMI] 32.0-32.9, adult; E78.5 Hyperlipidemia, unspecified; M54.2 Cervicalgia

== ENCOUNTER 2024-09-13 11:04 | Outpatient (AMB) | payer OTHER, SELFPAY ==
--- NOTE | 2024-09-13 11:17 | MHC.PC.OV ---
Vital Signs 09/13/24 11:18 Height 5 ft 3.5 in Weight 170 lb 4 oz BMI 29.7 BP 122/84 Blood Pressure Location Rt brachial Position Sitting Respiration 14 Pulse 52 Pulse Source Pulse Oximeter Temp 98.6 F Temp Source Oral Pulse Oximetry (%) 98 Oxygen Delivery Method Room Air Intake Visit Reasons: Regarding Zepbound medication denial Intake Note: Zepbound denial Fig Bar Machine Operator Required: No Allergies No Known Allergies Allergy (Verified 09/13/24 11:17) Tobacco use date assessed: 11/23/23 Dental Screening Dental Screen Date: 11/23/23 HPI HPI Comments History of Present Illness Details The patient is a 53 year old female with a past medical history of elevated glucose, joint pain presenting for follow up Weight continues to be a major issue for patient. Has tried gym 5x/week and limited calorie diet for the past 6 months and has gained not lost weight. Started in perimenopause. Increased joint pain. Her blood pressure today is elevated at home. Last lipids showed hyperlipidemia. Insurance does not cover GLP MSK: has had multiple joint pain. Neck pain, spasm. Cervical DDD. Following with [facility]. Had MRI. Taking meloxicam. Trouble sleeping Colonoscopy is up to date-07/2022, there was a hyperplastic polyp ROS see HPI PHYSICAL EXAM: GENERAL: Alert and oriented x 3. NAD EYES: EOMI. Anicteric. HENT: Moist mucous membranes. No scleral icterus. No cervical lymphadenopathy. LUNGS: Clear to auscultation bilaterally. CARDIOVASCULAR: Regular rate and rhythm. No murmur. No JVD. ABDOMEN: Soft, non-tender +bs EXTREMITIES: No edema. Non-tender. SKIN: No rashes or lesions. Warm. NEUROLOGIC: No focal neurological deficits. CN II-XII grossly intact PSYCHIATRIC: Cooperative. 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 1. Little interest or pleasure in doing things: not at all 2. Feeling down, depressed, or hopeless: not at all 3. Trouble falling or staying asleep, or sleeping too much: several days 4. Feeling tired or having little energy: several days 5. Poor appetite or overeating: not at all 6. Feeling bad about yourself - or that you are a failure or have let yourself or your family down: not at all 7. Trouble concentrating on things, such as reading the newspaper or watching television: several days 8. Moving or speaking so slowly that other people could have noticed. Or the opposite - being so fidgety or restless that you have been moving around a lot more than usual: not at all 9. Thoughts that you would be better off or of hurting yourself in some way: not at all Total score: 3 Depression Screening Interpretation: Negative Depression Screening Done: Yes 06817 - PHQ-9 Billing: Yes Source: Developed by Drs. Tanvir Brian, Kaila Mukherjee, Olegario Palmer and colleagues, with an educational chato from [employer]. Thrive Questionnaire Date Thrive assessed: 09/10/24 I am a: Patient What is your living situation today?: I have a steady place to live Within the past 12 months, did the food you bought not last and you didn't have the money to get more?: Never true Within the past 12 months, did you worry whether your food would run out before you got money to buy more?: Never true Do you have trouble paying for medicines?: No Do you have trouble getting transportation to medical appointments?: No Do you have trouble paying your heating and electricity bill?: No Do you have trouble taking care of your child, family member or friend?: No Do you have trouble with day-to-day activities such as bathing, preparing meals, shopping, managing finances, etc.?: No Are you currently unemployed and looking for a job?: No Are you interested in more education?: No Please select the resources that you would like help with: None Currently or been in a relationship where the following occur: No concerns reported THRIVE Score: 0 AUDIT C Alcohol Use Questionnaire (AUDIT-C) 1. How often do you have a drink containing alcohol?: 2-4 times a month Total Score: 2 ERICK-7 AMB Questionnaire ERICK-7 Date ERICK - 7 assessed: 11/23/23 Feeling nervous, anxious, or on edge: 1 = Several days Not being able to stop or control worryin = Not at all Worrying too much about different things: 0 = Not at all Trouble relaxin = Several days Being so restless that it is hard to sit still: 1 = Several days Becoming easily annoyed or irritable: 1 = Several days Feeling afraid as if something awful might happen: 0 = Not at all Total ERICK-7 score (0-4 normal; 5-9 mild; 10-14 moderate; 15-21 severe): 4 Source: Developed by Drs. Tanvir Brian, Kaila Mukherjee, Olegario Palmer and colleagues, with an educational chato from [employer]. Physical exam (Primary Care) Vital Signs: Last Vital Signs Temp 98.6 F 09/13/24 11:18 Pulse 52 09/13/24 11:18 Resp 14 09/13/24 11:18 BP 122/84 09/13/24 11:18 Pulse Ox 98 09/13/24 11:18 Oxygen Delivery Method Room Air 09/13/24 11:18 BMI result Body Mass Index 29.7 Tobacco/Smoking Status: Tobacco use Status Tobacco use date assessed 11/23/23 09/13/24 11:20 Patient Tobacco Use Status Current everyday Tobacco 09/13/24 11:20 Tobacco use type Cigarette 09/13/24 11:20 e-Cigarette/Vaping Use Never Used 09/13/24 11:20 PHQ-9: PHQ-9 Score PHQ-9: Total score 3 09/13/24 11:20 Depression Screening Interpretation: Negative Thrive Assessment: Date of Thrive Assessment Date Thrive assessed 09/10/24 09/13/24 11:20 Currently or been in a relationship where the following occur: No concerns reported Coding Level of Care Code Est Pt Level 4 (63350) Complex EM visit Add On G2211 Diagnoses Obesity (BMI 30.0-34.9) E66.811 Primary hypertension I10 Hypertension type: primary hypertension Hyperlipidemia, unspecified hyperlipidemia type E78.5 Hyperlipidemia type: unspecified Polyarthralgia M25.50 Additional Codes PHQ-9 - 65256 - PHQ-9 Billing: Yes ([id number]) Assessment & Plan Assessment & Plan (1) Obesity (BMI 30.0-34.9): Code(s): E66.811 - Obesity, class 1 Category: Medical (2) Hypertension: Code(s): I10 - Essential (primary) hypertension Category: Medical Qualifiers: Hypertension type: primary hypertension Qualified Code(s): I10 - Essential (primary) hypertension (3) Hyperlipidemia: Code(s): E78.5 - Hyperlipidemia, unspecified Category: Medical Qualifiers: Hyperlipidemia type: unspecified Qualified Code(s): E78.5 - Hyperlipidemia, unspecified (4) Polyarthralgia: Code(s): M25.50 - Pain in unspecified joint Category: Medical Plan Obesity/overweight-phentermine ordered. SE profile discussed Polyarthralgia-stable. increased back pain due to weight gain. continue prn flexeril, gabapentin Labs ordered BP stable off meds Orders: Orders Lutenizing Hormone 09/13/24 E66.811 - Obesity, class 1, E78.5 - Hyperlipidemia, unspecified, I10 - Essential (primary) hypertension, N92.6 - Irregular menstruation, unspecified, R73.09 - Other abnormal glucose TSH reflex Free T4 09/13/24 E66.811 - Obesity, class 1, E78.5 - Hyperlipidemia, unspecified, I10 - Essential (primary) hypertension, N92.6 - Irregular menstruation, unspecified, R73.09 - Other abnormal glucose Hemoglobin A1c 09/13/24 E66.811 - Obesity, class 1, E78.5 - Hyperlipidemia, unspecified, I10 - Essential (primary) hypertension, N92.6 - Irregular menstruation, unspecified, R73.09 - Other abnormal glucose Lipid Panel 09/13/24 E66.811 - Obesity, class 1, E78.5 - Hyperlipidemia, unspecified, I10 - Essential (primary) hypertension, N92.6 - Irregular menstruation, unspecified, R73.09 - Other abnormal glucose Complete Blood Count Auto Diff 09/13/24 E66.811 - Obesity, class 1, E78.5 - Hyperlipidemia, unspecified, I10 - Essential (primary) hypertension, N92.6 - Irregular menstruation, unspecified, R73.09 - Other abnormal glucose Estradiol Ultra Sensitive 09/13/24 E66.811 - Obesity, class 1, E78.5 - Hyperlipidemia, unspecified, I10 - Essential (primary) hypertension, N92.6 - Irregular menstruation, unspecified, R73.09 - Other abnormal glucose Comprehensive Met. Panel 09/13/24 E66.811 - Obesity, class 1, E78.5 - Hyperlipidemia, unspecified, I10 - Essential (primary) hypertension, N92.6 - Irregular menstruation, unspecified, R73.09 - Other abnormal glucose Medications: New phentermine must administer 30 minutes before or 1-2 hours after breakfast [id number] [facility][NOTE 3] [id number] Member [id number] 37.5 mg PO DAILY 30 caps 3RF
[2024-09-13 11:18] VITALS: BP 122/84; PULSE 52; RESP 14; TEMP 37; O2SAT 98; BMI 29.7
--- OUTSIDE RECORDS SUMMARY | 2024-09-13 12:29 | XMS_ITS | Patient Health Record ---
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 Name Role Phone Beatriz ZEPEDA MD, RINA Primary Care Provider UnavailTYESHA Best Unavailable [phone] Allergies No Known Allergies Reason For Referral No Information Medications Medication SIG (Take, Route, Frequency, Duration) Notes Start Date End Date Status Veozah 45 MG 1 tablet Orally Once a day; Duration: 90 days 01/25/2024 Active Wellbutrin Active Social [...] W/U Status Risk Notes Problem Tobacco user (244128462) Nicotine dependence, cigarettes, uncomplicated (F17.210) Active confirmed Problem Anxiety disorder (775898117) Anxiety disorder, unspecified (F41.9) Active confirmed Problem Menopause (573192937) Menopausal and female climacteric states (N95.1) Active confirmed Problem COVID-19 (124622419) COVID-19 (U07.1) Active confirmed Vital Signs Temperature 98.0 degrees Fahrenheit 01/25/2024 Blood pressure diastolic 74 mm Hg 01/25/2024 Height 64 in 01/25/2024 Blood pressure systolic 112 mm Hg 01/25/2024 Weight 168 lbs 01/25/2024 BMI 28.83 kg/m2 01/25/2024 Encounters Encounter Location Date Provider Diagnosis Total [facility] [employer] [facility] [address] [place] [address] 01/25/2024 TYESHA WILLINGHAM Encounter for gynecological examination (general) (routine) without abnormal findings Z01.419 ; Encounter for screening mammogram for malignant neoplasm of breast Z12.31 ; Menopausal and female climacteric states N95.1 and Other long term care social worker (current) drug therapy Z79.899 [facility] [employer] [address] [address] 02/10/2024 TYESHA WILLINGHAM Assessments Encounter Date Diagnosis [...] will be sent to pharmacy. 01/25/2024 Other senior living (current) drug therapy (ICD-10 - Z79.899) 01/25/2024 [...] Future Test Test Name Order Date Bilirubin, Total-[id number] 04/26/2024 Alkaline Phosphatase-[id number] 04/26/2024 AST (SGOT)-[id number] 04/26/2024 Bilirubin, Direct-[id number] 04/26/2024 ALT (SGPT)-[id number] 04/26/2024 Next Appt Details Provider Name:TYESHA Beckford, 01/31/2025 11:00:00 AM, [address], [address], [place], [address], Insurance Providers Payer Name Payer Address Payer Phone Subscriber Number Group Number Insured Name Patient Relationship to Insured Coverage Start Date Coverage End Date [facility] [address] [address] [place] [address] [id number] BESSIE LUZ Self - patient is the insured Medical (General) History Medical History History ICD Code COVID-19 U07.1 Anxiety disorder, unspecified F41.9 Surgical History Surgery Date(Month/Year)
== END 2024-09-13 11:35 | disposition home or self-care (01) ==
LOC: HO.HMCFM 11:05
PROVIDERS: PCP Internal Medicine; Visit Provider Internal Medicine
DX: I10 Essential (primary) hypertension (principal); E66.811 Obesity, class 1; Z68.29 Body mass index [BMI] 29.0-29.9, adult; E78.5 Hyperlipidemia, unspecified; M25.50 Pain in unspecified joint

== ENCOUNTER → 2024-09-13 11:04 | Outpatient (BNVA) | payer OTHER, SELFPAY | PROVIDERS: PCP Internal Medicine; Visit Provider Internal Medicine | DX: E66.811 Obesity, class 1 (principal); Z68.29 Body mass index [BMI] 29.0-29.9, adult; I10 Essential (primary) hypertension; E78.5 Hyperlipidemia, unspecified; M25.50 Pain in unspecified joint; N92.6 Irregular menstruation, unspecified; R73.09 Other abnormal glucose; Z13.31 Encounter for screening for depression | CPT/HCPCS: 36415; 80053; 80061; 82670; 83002; 83036; 84443; 85025; 96127; 99212 ==

== ENCOUNTER 2024-09-13 11:56 | Outpatient (REF) | payer OTHER, SELFPAY ==
[2024-09-13 14:43] LABS: MANUAL DIFF FLAG NO
[2024-09-13 14:53] LABS: Hematocrit 38.7 % (37.0-47.0); Hemoglobin 13.3 g/dl (12.0-16.0); Imm Gran Abs Auto 0.01 X10*3/uL (0.00-0.03); Imm Gran Pct Auto 0.2 % (0.0-0.4); Lymphocytes Absolute Auto 2.3 X10*3/uL (1.2-4.9); Mean Corpuscular HGB Conc 34.4 g/dl (31.0-35.0); Mean Corpuscular Hemoglobin 30.6 pg (27.0-33.0); Mean Corpuscular Volume 89.2 fL (80.0-98.0); NRBC Abs Auto 0.000 X10*3/uL (0.0-0.012); NRBC Pct Auto 0.0 /100WBC (0.0-0.2); Platelet Count 226 X10*3/uL (160-400); Red Blood Count 4.34 X10*6/uL (4.20-5.50); White Blood Count 5.3 X10*3/uL (4.8-10.8)
[2024-09-13 15:03] LABS: Hemoglobin A1C 135.3158 umol/L; Total Hemoglobin (HGBA1C) 3545.5359 umol/L
[2024-09-13 15:13] LABS: Alanine Aminotransferase 32 U/L (0-31); Albumin Level 4.6 g/dL (3.5-5.0); Alkaline Phosphatase 89 U/L (39-117); Anion Gap 11 (12-20); Aspartate Amino Transferase 27 U/L (5-31); Blood Urea Nitrogen 8 mg/dL (9-16); Calcium 10.6 mg/dL (8.4-10.2); Carbon Dioxide 31 mmol/L (22-29); Chloride 103 mmol/L (96-108); Cholesterol 234 mg/dL (<200); Estimated Glomerular Filt Rate > 60; HDL Cholesterol 57 mg/dL (>40); Potassium 4.4 mmol/L (3.3-5.1); Sodium 141 mmol/L (135-145); Total Protein 7.8 g/dL (6.5-8.0); Triglycerides 178 mg/dL (<150)
[2024-09-20 03:08] LABS: Estradiol Ultra Sensitive 3 pg/mL
== END 2024-09-13 11:57 | disposition home or self-care (01) ==
LOC: HO.WFDLDS 11:56
PROVIDERS: Visit Provider Internal Medicine
DX: Z13.89 Encounter for screening for other disorder (principal)
CPT/HCPCS: 36415; 80053; 80061; 82670; 83002; 83036; 84443; 85025

== ENCOUNTER 2025-02-10 13:42 | Outpatient (AMB) | payer OTHER, SELFPAY ==
--- OUTSIDE RECORDS SUMMARY | 2023-11-24 05:40 | XMS_ITS ---
Author Organization [facility] Address [address] [address] Care Team Providers Care Magazine Journalist Name Role Phone RINA BLANCO MD Primary Care Provider Unavailab TYESHA Lopez Unavailable [phone] REASON FOR VISIT Annual MANAGER OUTREACH Physical Encounters Encounter Location Date Provider Diagnosis [facility] [address] [facility] [address] [place] [address] 11/24/2023 TYESHA WILLINGHAM Encounter for gynecological examination (general) (routine) without abnormal findings Z01.419 ; Encounter for screening mammogram for malignant neoplasm of breast Z12.31 and Encounter for screening for infections with a predominantly sexual mode of transmission Z11.3 Assessments Encounter Date Diagnosis (ICD Code) Assessment Notes Treatment Notes Treatment Clinical Notes Section Notes 11/24/2023 Encounter for gynecological examination (general) (routine) without abnormal findings (ICD-10 - Z01.419) During the visit, the following areas of concern were addressed: Discussed cervical cancer screening with either cytology alone every 3 years or high risk HPV co-testing every 5 years as per ASCCP guidelines. Advised continued annual pelvic exams. Patient encouraged to increase her level of exercise. SBE technique encouraged/tau ght. Patient reminded when annual mammogram is due. Patient encouraged to keep colon screening up to date. 11/24/2023 Encounter for screening mammogram for malignant neoplasm of breast (ICD-10 - Z12.31) 11/24/2023 Encounter for screening for infections with a predominantly sexual mode of transmission (ICD-10 - Z11.3) Plan Of Treatment Treatment Notes Assessment Notes Encounter for gynecological examination (general) (routine) without abnormal findings During the visit, the following areas of concern were addressed: Discussed cervical cancer screening with either cytology alone every 3 years or high risk HPV co-testing every 5 years as per ASCCP guidelines. Advised continued annual pelvic exams. Patient encouraged to increase her level of exercise. SBE technique encouraged/taught. Patient reminded when annual mammogram is due. Patient encouraged to keep colon screening up to date. Pending Test Test Name Order Date MM Digital Screening Mammogram 3D 2023 Next Appt Details Follow Up: 1 Year, Reason: Y early Housekeeper Manager Exam Provider Name:TYESHA Crews DOMINICK Beckford, 02/06/2026 11:00:00 AM, [address], [address], [place], [address], Progress Notes * BESSIE LUZDOB:1970 (54 yo F)Acc No.[id number]:11/24/2023 PROGRESS NOTES Patient: BESSIE CREWS Provider: Mars WILLINGHAM MD :1970 A ge:53 Y S ex:Female Date:11/24/2023 [address] Pcp:RINA ZEPEDA MD Subjective: * Chief Complaints: * 1 . Annual MANAGER OUTREACH Physical. 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 S he has been in state of good health since her last exam. She has the following concerns: S he has not received the Covid-19 vaccine. R elationship status: *partnered for 4 years. They live together and she feels safe at home. She is sexually active. Sexual partner(s): male. She does not wish to have STI testing. M enses: *monthly, lasting 5-7 days, heavy for days 2-4, no changes. No intermenstrual bleeding. C ontraception: fertility awareness method S he does *not report vaginal dryness. She does* have hot flashes/night sweats - tolerating ok - uses Evening [place] oil with good effect. T he patient has *not had an abnormal pap smear within the last 5 years. Her most recent pap smear was 12/13/2019 - NIL, neg HR HPV. Next due in 2024. S he has not been diagnosed with breast cancer. She does *not have a family history of breast cancer. Her last mammogram was 11/09/23. . S he does have a family history of colon cancer - not immediate, but she feels in her greater family, like her grandmother's siblings. She a has had a colonoscopy. The last colonoscopy was 08/07/22. Next due in 10 yrs. T he patient does* exercise. She exercises x 2 days/week by riding and caring for horses. * ROS: A nnual Housekeeper Manager Exam ROS: Bowel habit changes d enies. B ladder symptoms d enies. V aginal discharge, unusual d enies. V aginal itch or odor d enies. w eight or appetite changes d enies. C hest pains, SOB d enies. d epression d enies.? B reast: Denies B reast lump. D enies N ipple discharge.? H ematology: Denies S wollen glands. S kin: Patient denies c hanging moles. P sychiatric: Denies A nxiety. * Medical History: * Housekeeper Manager History: G ravida/ Para 2 /0. S exual activity c urrently sexually active, with men. L ast Pap Smear: 1 - NIL, neg HR HPV. M ammogram: < 50% density, 06/24/21 < 50% density, 2019. A bnormal Pap Smear: N O. L MP and menses . B irth Control: c ondoms. C olonoscopy WNL - f/u 10 yr. * OB History: T otal pregnancies 2 . T otal living children 0 . A bortion(s) 2 , uncomplicated (she states she is Rh neg). 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 HEAD: n ormocephalic, atraumatic. NECK/THYROID: n cherrie supple, full range of motion, thyroid normal. LYMPH NODES: n o axillary or supraclavicular adenopathy.? SKIN: normal, good turgor, no rashes, no suspicious lesions. BREASTS: normal, no dimpling, no discharge, no drainage, no masses palpable bilaterally, nontender. ABDOMEN: soft, non-tender, non distended without masses or hepatosplenomegay. RECTAL: normal tone, no masses palpable. BACK: no costovertebral angle tenderness. FEMALE GENITOURINARY: V ulva without lesions or masses, vagina pink without abnormal discharge, lesions or masses, cervix appears normal and is not tender to palpation, uterus is normal size, mobile, nontender and anteverted, ovaries are not palpable. NEUROLOGIC: alert and oriented, gait normal. PSYCH: alert, oriented, cognitive function intact, cooperative with exam, good eye contact, mood/affect full range, speech clear. Assessment: * Assessment: 1. E ncounter for gynecological examination (general) (routine) without abnormal findings - Z01.419 (Primary) 2 . E ncounter for screening mammogram for malignant neoplasm of breast - Z12.31 3 . E ncounter for screening for infections with a predominantly sexual mode of transmission - Z11.3 Plan: * Treatment: 2. E ncounter for screening mammogram for malignant neoplasm of breast I maging: MM Digital Screening Mammogram 3D * Follow Up: 1 Year (Reason: Yearly Housekeeper Manager Exam) * Images: Billing Information: * Visit Code: 24057 Preventive Care Est Pt. Age 40-64. 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 She has been in state of good health since her last exam. She has the following concerns: She has not received the Covid-19 vaccine. Relationship status: *partnered for 4 years. They live together and she feels safe at home. She is sexually active. Sexual partner(s): male. She does not wish to have STI testing. Menses: *monthly, lasting 5-7 days, heavy for days 2-4, no changes. No intermenstrual bleeding. Contraception: fertility awareness method She does *not report vaginal dryness. She does* have hot flashes/night sweats - tolerating ok - uses Evening [place] oil with good effect. The patient has *not had an abnormal pap smear within the last 5 years. Her most recent pap smear was 12/13/2019 - NIL, neg HR HPV. Next due in 2024. She has not been diagnosed with breast cancer. She does *not have a family history of breast cancer. Her last mammogram was 11/09/23. . She does have a family history of colon cancer - not immediate, but she feels in her greater family, like her grandmother's siblings. She a has had a colonoscopy. The last colonoscopy was 08/07/22. Next due in 10 yrs. The patient does* exercise. She exercises x 2 days/week by riding and caring for horses. 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 room HEAD: normocephalic, atrau matic NECK/THYROID: neck supple, full ra nge of motion, thyroid normal ABDOMEN: soft, non-tender, no n distended without masses or hepatosplenomegay NEUROLOGIC: alert and oriented, gait normal SKIN: normal, good turgor, no rashes, no suspicious lesions BACK: no costovertebral an gle tenderness BREASTS: normal, no dimpling, no discharge, no drainage, no masses palpable bilaterally, nontender LYMPH NODES: no axillary or supra clavicular adenopathy RECTAL: normal tone, no mass es palpable PSYCH: alert, oriented, cog nitive function intact, cooperative with exam, good eye contact, mood/affect full range, speech clear FEMALE GENITOURINARY: Vulva without lesi ons or masses, vagina pink without abnormal discharge, lesions or masses, cervix appears normal and is not tender to palpation, uterus is normal size, mobile, nontender and anteverted, ovaries are not palpable
--- NOTE | 2025-02-10 13:57 | MHC.PC.OV ---
Vital Signs 02/10/25 13:58 02/10/25 14:04 Height 5 ft 3.5 in Weight 166 lb BMI 28.9 BP 134/94 H 128/94 H Blood Pressure Location Rt brachial Rt brachial Position Sitting Sitting Respiration 14 Pulse 66 Pulse Source Pulse Oximeter Temp 98.6 F Temp Source Oral Pulse Oximetry (%) 96 Oxygen Delivery Method Room Air Intake Visit Reasons: CPE Intake Note: Physical Solution Coordinator Required: No Allergies No Known Allergies Allergy (Verified 02/10/25 13:58) Medication List - Last Reconciled 02/10/25 by Ana Laura Borrego MD bupropion HCl XL 150 mg PO DAILY cyclobenzaprine 5 - 10 mg (1 - 2 x 5 mg) PO BEDTIME PRN estradiol-norethindrone acet 0.05-0.25 mg/24 hr (CombiPatch) 2 patches transdermal 2XW gabapentin 300 mg PO TID PRN Tobacco use date assessed: 02/10/25 Dental Screening Dental Screen Date: 02/10/25 Did you have a dental visit in the last 12 months?: Yes Did you have a dental problem in the last 6 months where you did not have access to dental care?: No Was dental information given to patient?: Patient has dentist HPI HPI Comments History of Present Illness Details The patient is a 53 year old female with a past medical history of elevated glucose, joint pain presenting for CPE Weight continues to be a major issue for patient. Has tried gym 5x/week and limited calorie diet for the past 6 months and has gained not lost weight. Started in perimenopause. Increased joint pain. Her blood pressure today is elevated at home. Last lipids showed hyperlipidemia. Insurance does not cover GLP. Phentermine was ineffective MSK: has had multiple joint pain. Neck pain, spasm. Cervical DDD. Following with [facility]. Had MRI. 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 NAD EYES: EOMI. Anicteric. HENT: Moist mucous membranes. No scleral icterus. No cervical lymphadenopathy. LUNGS: Clear to auscultation bilaterally. CARDIOVASCULAR: Regular rate and rhythm. No murmur. No JVD. ABDOMEN: Soft, non-tender +bs EXTREMITIES: No edema. Non-tender. SKIN: No rashes or lesions. Warm. NEUROLOGIC: No focal neurological deficits. CN II-XII grossly intact PSYCHIATRIC: Cooperative. 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 Current occupational exposures/hazards: No Cognitive needs: No Hearing needs: No Vision needs: No Questionnaire Thrive Questionnaire Date Thrive assessed: 09/10/24 I am a: Patient What is your living situation today?: I have a steady place to live Within the past 12 months, did the food you bought not last and you didn't have the money to get more?: Never true Within the past 12 months, did you worry whether your food would run out before you got money to buy more?: Never true Do you have trouble paying for medicines?: No Do you have trouble getting transportation to medical appointments?: No Do you have trouble paying your heating and electricity bill?: No Do you have trouble taking care of your child, family member or friend?: No Do you have trouble with day-to-day activities such as bathing, preparing meals, shopping, managing finances, etc.?: No Are you currently unemployed and looking for a job?: No Are you interested in more education?: No Please select the resources that you would like help with: None Currently or been in a relationship where the following occur: No concerns reported THRIVE Score: 0 AUDIT C Alcohol Use Questionnaire (AUDIT-C) 1. How often do you have a drink containing alcohol?: 2-3 times a week 2. How many drinks containing alcohol do you have on a typical day when you are drinking?: 3 or 4 3. How often do you have six or more drinks on one occasion?: Never Total Score: 4 ERICK-7 AMB Questionnaire ERICK-7 Date ERICK - 7 assessed: 11/23/23 Source: Developed by Drs. Tanvir Brian, Kaila Mukherjee, Olegario Palmer and colleagues, with an educational chato from [employer]. Physical exam (Primary Care) Vital Signs: Last Vital Signs Temp 98.6 F 02/10/25 13:58 Pulse 66 02/10/25 13:58 Resp 14 02/10/25 13:58 BP 128/94 H 02/10/25 14:04 Pulse Ox 96 02/10/25 13:58 Oxygen Delivery Method Room Air 02/10/25 13:58 BMI result Body Mass Index 28.9 Tobacco/Smoking Status: Tobacco use Status Tobacco use date assessed 02/10/25 02/10/25 14:08 Patient Tobacco Use Status Current everyday Tobacco 02/10/25 14:08 Tobacco use type Cigarette 02/10/25 14:08 e-Cigarette/Vaping Use Never Used 02/10/25 14:08 Thrive Assessment: Date of Thrive Assessment Date Thrive assessed 09/10/24 02/10/25 14:08 Currently or been in a relationship where the following occur: No concerns reported Coding Level of Care Code Est Pt Prev Care 40-64y(84379) Diagnoses Physical exam Z00.00 Hyperlipidemia, unspecified hyperlipidemia type E78.5 Hyperlipidemia type: unspecified Primary hypertension I10 Hypertension type: primary hypertension Elevated glucose R73.09 Obesity (BMI 30.0-34.9) E66.811 Assessment & Plan Assessment & Plan (1) Physical exam: Code(s): Z00.00 - Encounter for general adult medical examination without abnormal findings (2) Hyperlipidemia: Code(s): E78.5 - Hyperlipidemia, unspecified Category: Medical Qualifiers: Hyperlipidemia type: unspecified Qualified Code(s): E78.5 - Hyperlipidemia, unspecified (3) Hypertension: Code(s): I10 - Essential (primary) hypertension Category: Medical Qualifiers: Hypertension type: primary hypertension Qualified Code(s): I10 - Essential (primary) hypertension (4) Elevated glucose: Code(s): R73.09 - Other abnormal glucose Category: Medical (5) Obesity (BMI 30.0-34.9): Code(s): E66.811 - Obesity, class 1 Category: Medical Plan 54 year old female presenting to for CPE Mild lymphocytosis-check peripheral smear. Menopause-has started HRT Depression stable on medications Orders: Orders Pathologist Review - CBC 02/10/25 E66.811 - Obesity, class 1, E78.5 - Hyperlipidemia, unspecified, I10 - Essential (primary) hypertension, R73.09 - Other abnormal glucose, R79.89 - Other specified abnormal findings of blood chemistry Hemoglobin A1c 02/10/25 E66.811 - Obesity, class 1, E78.5 - Hyperlipidemia, unspecified, I10 - Essential (primary) hypertension, R73.09 - Other abnormal glucose, R79.89 - Other specified abnormal findings of blood chemistry Complete Blood Count Auto Diff 02/10/25 E66.811 - Obesity, class 1, E78.5 - Hyperlipidemia, unspecified, I10 - Essential (primary) hypertension, R73.09 - Other abnormal glucose, R79.89 - Other specified abnormal findings of blood chemistry Comprehensive Met. Panel 02/10/25 E66.811 - Obesity, class 1, E78.5 - Hyperlipidemia, unspecified, I10 - Essential (primary) hypertension, R73.09 - Other abnormal glucose, R79.89 - Other specified abnormal findings of blood chemistry Lipid Panel 02/10/25 E66.811 - Obesity, class 1, E78.5 - Hyperlipidemia, unspecified, I10 - Essential (primary) hypertension, R73.09 - Other abnormal glucose, R79.89 - Other specified abnormal findings of blood chemistry Medications: Changed From gabapentin 300 mg PO TID PRN To gabapentin 300 mg PO TID 90 caps 3RF
[2025-02-10 13:58] VITALS: BP 134/94; PULSE 66; RESP 14; TEMP 37; O2SAT 96; BMI 28.9
[2025-02-10 14:04] VITALS: BP 128/94
--- OUTSIDE RECORDS SUMMARY | 2025-02-10 19:13 | XMS_ITS | Patient Health Record ---
Author Organization [facility] Address [address] [place] [address] Care Team Providers Care Toll Repairer Central Office Name Role Phone Beatriz ZEPEDA MD, RINA Primary Care Provider Unavailab lily TYESHA WILLINGHAM Unavailable [phone] Allergies No Known Allergies Results Component Value Reference Range Notes [id number] IGP No Culture 30 Plus Reviewed date:02/06/2025 08:39:25 AM Interpretation: Performing Lab:[facility] [place], [address], [address], [place], Phone - [phone], Director - [facility] Notes/Report: Clinical Information:CERVICAL [id number] Dates / Results....08/06/22 Other..............Post Menopausal No. of containers..01 ThinPrep Vial DIAGNOSIS: NEGATIVE FOR INTRAEPITHELIAL LESION OR MALIGNANCY. PREDOMINANCE OF COCCOBACILLI CONSISTENT WITH SHIFT IN VAGINAL KATTY IS PRESENT. Specimen adequacy: Satisfactory for evaluation. Endocervical and/or squamous metaplastic cells (endocervical component) are present. Clinician provided ICD10: Z01.419 Z11.51 Performed by: Nydia gamble, Barge Captain (ASCP) . . Note: The Pap smear is a screening test designed to aid in the detection of premalignant and malignant conditions of the uterine cervix. It is not a diagnostic procedure and should not be used as the sole means of detecting cervical cancer. Both false-positive and false-negative reports do occur. . Test Methodology: This liquid based ThinPrep(R) pap test was screened with the use of an image guided system. HPV Aptima Negative Negative This nucleic acid amplification test detects fourteen high-risk HPV types (16,18,31,33,35,39,45,51,52,56,5 8,59,66,68) without differentiation. HPV Genotype Reflex Criteria not met, HPV Genotype not performed. PDF Report Reviewed date:02/06/2025 08:38:45 AM Interpretation: Performing Lab:[facility] [place], [address], [address], [place], Phone - [phone], Director - [facility] Notes/Report: Clinical Information:CERVICAL [id number] Dates / Results....08/06/22 Other..............Post Menopausal No. of containers..01 ThinPrep Vial Reason For Referral No Information Medications Medication SIG (Take, Route, Frequency, Duration) Notes Start Date End Date Status Gabapentin 300 MG Oral; Duration: 30 Days Active Veozah 45 MG 1 tablet Orally Once a day; Duration: 90 days 01/25/2024 Not-Boubacar g Cyclobenzaprine HCl 5 MG Oral; Duration: 15 Days Active buPROPion HCl ER (XL) 150 MG Oral; Duration: 90 Days Active CombiPatch 0.05-0.25 MG/DAY 1 patch to skin Transdermal Two times a Week; Duration: 84 days 01/31/2025 Active Social History Tobacco Use: Social History Observation Description Date Details (start date - stop date) Current some da y smoker NA - NA AUDIT-C (Standard) Question Answer Notes Did you have a drink contain ing alcohol in the past year? Yes How often did you have a dri nk containing alcohol in the past year? 2 to 3 times a week (3 points) How many drinks did you have on a typical day when you were drinking in the past year? 3 or 4 drinks (1 point) How often did you have six o r more drinks on one occasion in the past year? Never (0 point) Points 4 Interpretation Positive Tobacco Control (Standard) Question Answer Notes Tobacco use: Current some day smoker Additional Findings: Tobacco user Light cigarett e smoker (1-9 cigs/day) Section Notes: She only smokes a cigarette or 2 when out with friends, which is about once weekly. Problems Problem Type SNOMED Code ICD Code Onset Dates Problem Status W/U Status Risk Notes Problem Tobacco user (444062415) Nicotine dependence, cigarettes, uncomplicated (F17.210) Active confirmed Problem Anxiety disorder (603893705) Anxiety disorder, unspecified (F41.9) Active confirmed Problem Menopause (979780946) Menopausal and female climacteric states (N95.1) Active confirmed Problem COVID-19 (322381540) COVID-19 (U07.1) Active confirmed Vital Signs Temperature 97.8 degrees Fahrenheit 01/31/2025 Blood pressure diastolic 72 mm Hg 01/31/2025 Height 64 in 01/31/2025 Blood pressure systolic 128 mm Hg 01/31/2025 Weight 163 lbs 01/31/2025 BMI 27.98 kg/m2 01/31/2025 Encounters Encounter Location Date Provider Diagnosis [facility] [place] [address] [address] 01/31/2025 TYESHA WILLINGHAM Encounter for gynecological examination (general) (routine) without abnormal findings Z01.419 ; Encounter for screening mammogram for malignant neoplasm of breast Z12.31 ; Hormone replacement therapy Z79.890 and Encounter for screening for human papillomavirus (HPV) Z11.51 [facility] [place] [address] [facility] [address] [address] 11/15/2024 TYESHA WILLINGHAM [facility] [place] [address] [address] 02/06/2025 TYESHA WILLINGHAM Assessments Encounter Date Diagnosis (ICD Code) Assessment Notes Treatment Notes Treatment Clinical Notes Section Notes 01/31/2025 Encounter for gynecological examination (general) (routine) without [...] to keep colon screening up to date. 01/31/2025 Encounter for screening mammogram for malignant neoplasm of breast (ICD-10 - Z12.31) 01/31/2025 Hormone replacement therapy (ICD-10 - Z79.890) Post-menopausal hormone therapy counselling: She was counseled at length on the use of hormone replacement. Her medical history was reviewed with her. She does not have an estrogen dependent cancer, liver disease or history of VTE. I discussed the Women's Health Study, regarding the increased risk of breast cancer, heart disease, and DVT with the use of conjugated estrogens. These risks appeared to be increased after the fifth year of use, except for heart disease that may occur in the first year in women at risk. There are newer studies that have looked at the use of estradiol. The [employer] [place] Comparative Study noted that estradiol, when used for more than 10 years, was safe for the breast. The [place] Osteoporosis Prevention Study found that during 10 years of treatment with estradiol (plus progestin when indicated) there was a significantly lower rate of myocardial infarction, heart failure or with no increase in thromboembolism, cancer or stroke compared with placebo. This is markedly different from the WHI outcomes. In the most recnet [place] systematic review evaluating RCTs of HT for preventing CHD in postmenopausal women, among women initiating HT before age 60 year or less than 10 years since menopause, CHD risk was reduced by roughly half and all-cause mortality by 30%. Evidence supports the use of estradiol for osteoporosis prevention, treatment of vasomotor symptoms and prevention of CVD and premature when started within 10 years of menopause. The addition of micronized progesterone further enhances bone mineral density without any increase in breast cancer incidence or mortality. She understands the above, and she would like to use hormone replacement therapy to alleviate her unpleasant menopausal symptoms. 01/31/2025 Encounter for screening for human papillomavirus (HPV) (ICD-10 - Z11.51) 01/31/2025 Other An additional 2 3 minutesabove and beyond the routine telemetry technician exam were spent on the day of the visit reviewing and prepping the chart, obtaining the HPI, examining the patient, counseling the patient on the risks/benefits of hormone therapy, ordering/refilling medications, ordering tests and procedures and documenting this encounter. Plan Of Treatment Pending Test Test Name Order Date MM Digital Screening Mammogram 3D 2019 MM Digital Screening Mammogram 3D 2021 MM Digital Screening Mammogram 3D 2022 MM Digital Screening Mammogram 3D 2023 MM Digital Screening Mammogram 3D 2024 Future Test Test Name Order Date Bilirubin, Total-[id number] 04/26/2024 Alkaline Phosphatase-[id number] 04/26/2024 AST (SGOT)-[id number] 04/26/2024 Bilirubin, Direct-[id number] 04/26/2024 ALT (SGPT)-[id number] 04/26/2024 Next Appt Details Provider Name:TYESHA Mars ZAVALADOMINICK Analy, 02/06/2026 11:00:00 AM, [address], [facility] [address], [place], [address], Insurance Providers Payer Name Payer Address Payer Phone Subscriber Number Group Number Insured Name Patient Relationship to Insured Coverage Start Date Coverage End Date [facility] [address] [address] [place] [id number] BESSIE LUZ Self - patient is the insured Medical (General) History Medical History History ICD Code COVID-19 U07.1 Anxiety disorder, unspecified F41.9 Surgical History Surgery Date(Month/Year)
== END 2025-02-10 14:26 | disposition home or self-care (01) ==
LOC: HO.HMCFM 13:43
PROVIDERS: PCP Internal Medicine; Visit Provider Internal Medicine
DX: Z00.00 Encounter for general adult medical examination without abnormal findings (principal); E66.811 Obesity, class 1; Z68.28 Body mass index [BMI] 28.0-28.9, adult; E78.5 Hyperlipidemia, unspecified; I10 Essential (primary) hypertension; R73.09 Other abnormal glucose

== ENCOUNTER 2025-02-10 13:42 | Outpatient (REF) | payer OTHER, SELFPAY ==
[2025-02-10 17:39] LABS: MANUAL DIFF FLAG NO
[2025-02-10 17:46] LABS: Hematocrit 39.0 % (37.0-47.0); Hemoglobin 13.2 g/dl (12.0-16.0); Imm Gran Abs Auto 0.02 X10*3/uL (0.00-0.03); Imm Gran Pct Auto 0.3 % (0.0-0.4); Lymphocytes Absolute Auto 3.3 X10*3/uL (1.2-4.9); Mean Corpuscular HGB Conc 33.8 g/dl (31.0-35.0); Mean Corpuscular Hemoglobin 30.1 pg (27.0-33.0); Mean Corpuscular Volume 89.0 fL (80.0-98.0); NRBC Abs Auto 0.000 X10*3/uL (0.0-0.012); NRBC Pct Auto 0.0 /100WBC (0.0-0.2); Platelet Count 224 X10*3/uL (160-400); Red Blood Count 4.38 X10*6/uL (4.20-5.50); White Blood Count 7.9 X10*3/uL (4.8-10.8)
[2025-02-10 18:00] LABS: Alanine Aminotransferase 38 U/L (0-31); Albumin Level 4.6 g/dL (3.5-5.0); Alkaline Phosphatase 95 U/L (39-117); Anion Gap 12 (12-20); Aspartate Amino Transferase 31 U/L (5-31); Blood Urea Nitrogen 14 mg/dL (9-16); Calcium 9.9 mg/dL (8.4-10.2); Carbon Dioxide 28 mmol/L (22-29); Chloride 103 mmol/L (96-108); Cholesterol 256 mg/dL (<200); Estimated Glomerular Filt Rate > 60; HDL Cholesterol 74 mg/dL (>40); Potassium 4.6 mmol/L (3.3-5.1); Sodium 138 mmol/L (135-145); Total Protein 7.8 g/dL (6.5-8.0); Triglycerides 132 mg/dL (<150)
== END 2025-02-10 13:43 | disposition home or self-care (01) ==
LOC: HO.WFDLDS 13:42
PROVIDERS: PCP Internal Medicine; Visit Provider Internal Medicine
DX: Z00.00 Encounter for general adult medical examination without abnormal findings (principal); R79.89 Other specified abnormal findings of blood chemistry; I10 Essential (primary) hypertension; E78.5 Hyperlipidemia, unspecified; R73.09 Other abnormal glucose; E66.811 Obesity, class 1; R07.89 Other chest pain; Z68.28 Body mass index [BMI] 28.0-28.9, adult
CPT/HCPCS: 80053; 80061; 83036; 85025; 99396